=== PATIENT | female | born 1945 | race Caucasian/White ===

== ENCOUNTER 2021-07-11 11:28 | Emergency (ER) | payer MEDICARE, BC ==
[2021-07-11] MEDS ORDERED: Sodium Chloride 0.9% 10 ML Syringe FLUSH PRN (12:06)
--- NOTE | 2021-07-11 12:22 | EDM.PDOC ---
ED HPI GENERAL MEDICAL PROBLEM - General Chief Complaint: General Stated Complaint: [facility] Time Seen by Provider: 07/11/21 11:41 Source of Information: Reports: Patient History Limitations: Reports: No Limitations, Other (ED vital signs reveal temp of 97.8, pulse of 67, respiratory rate of 30, blood pressure 147/73, pulse ox 96% on room air) - History of Present Illness INITIAL COMMENTS - FREE TEXT/NARRATIVE: 76-year-old female presents the emergency department today with complaints of dehydration. Patient states she was exposed to a friend who tested positive for Covid 10 days ago. She states at the time that she was around her friend was 14 days ago. She states that about 10 days ago she developed a cough but that only lasted for day and has since resolved. She has not had any fever or chills, she has not had any nausea vomiting or diarrhea. She has not had any abdominal pain. She states that 3 days ago she developed body aches but that only lasted a day and has since resolved. She has not noted any change in her appetite. She has not had any shortness of breath or headache. She is however concerned that she may have Covid. She states her primary care provider was Dr. Santoro however he has since retired and she has not found replacement. Treatments CRITICAL CARE RN: Reports: Acetaminophen - Related Data Allergies Allergy/AdvReac Type Severity Reaction Status Date / Time No Known Allergies Allergy Verified 07/11/21 11:38 Home Meds: Home Meds Aspirin 81 mg PO DAILY 07/11/21 [History] Calcium Carbonate [Calcium] 1 tab PO DAILY 07/11/21 [History] Cefdinir [Omnicef] 300 mg PO BID #9 cap 07/11/21 [Rx] Enalapril [Vasotec] 10 mg PO DAILY 07/11/21 [History] Meloxicam [Mobic] 1 tab PO ASDIRECTED 07/11/21 [History] Triamterene/Hydrochlorothiazid [Triamterene-HCTZ 37.5-25 MG] 1 each PO 07/11/21 [History] dilTIAZem HCL [Cartia Xt] 240 mg PO 07/11/21 [History] Past Medical History HEENT History: Reports: Impaired Vision Cardiovascular History: Reports: Hypertension Respiratory History: Reports: None Gastrointestinal History: Reports: None Genitourinary History: Reports: None 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: Musculoskeletal History: Reports: Arthritis Neurological History: Reports: None Psychiatric History: Reports: None Endocrine/Metabolic History: Reports: None Hematologic History: Reports: None Immunologic History: Reports: None Oncologic (Cancer) History: Reports: None Dermatologic History: Reports: None - Infectious Disease History Infectious Disease History: Reports: Measles - Past Surgical History Head Surgeries/Procedures: Reports: None HEENT Surgical History: Reports: None Social & Family History - Family History Family Medical History: No Pertinent Family History - Tobacco Use Tobacco Use Status *Q: Never Tobacco User - Caffeine Use Caffeine Use: Reports: Soda - Recreational Drug Use Recreational Drug Use: No ED ROS GENERAL - Review of Systems Review Of Systems: Comprehensive ROS is negative, except as noted in HPI. ED EXAM, GENERAL - Physical Exam Exam: See Below Exam Limited By: No Limitations General Appearance: Alert, WD/WN, No Apparent Distress Ears: Normal External Exam, Hearing Grossly Normal Nose: Normal Inspection Throat/Mouth: Normal Inspection, Normal Lips, Normal Voice, No Airway Compromise Head: Atraumatic Neck: Normal Inspection, Supple Respiratory/Chest: No Respiratory Distress, Lungs Clear, Normal Breath Sounds, No Accessory Muscle Use, Chest Non-Tender Cardiovascular: Normal Peripheral Pulses, Regular Rate, Rhythm, No Edema, No Murmur Peripheral Pulses: 2+: Radial (L), Radial (R) GI/Abdominal: Normal Bowel Sounds, Soft, Non-Tender, No Distention (Female) Exam: Deferred Rectal (Female) Exam: Deferred Back Exam: Normal Inspection Extremities: Normal Inspection Neurological: Alert, Oriented, Normal Cognition Psychiatric: Normal Affect, Normal Mood Skin Exam: Warm, Dry, Intact, Normal Color, No Rash Lymphatic: No Adenopathy #1 Interpretation EKG Date: 07/11/21 Time: 12:28 Rhythm: NSR Rate (Beats/Min): 68 [place]: Normal P-Wave: Present QRS: Normal ST-T: Normal QT: Normal EKG Interpretation Comments: Per Dr. Tyler interpretation: Sinus or ectopic atrial rhythm at 68 bpm; inferior infarct, old Course - Vital Signs Last Recorded V/S: Last Vital Signs Temp 97.8 F 07/11/21 11:47 Pulse 63 07/11/21 14:30 Resp 16 07/11/21 14:30 BP 145/61 H 07/11/21 14:30 Pulse Ox 93 L 07/11/21 14:30 - Orders/Labs/Meds Orders: Active Orders 24 hr Category Date Time Status Vital Signs [RC] Q15M Care 07/11/21 14:00 Active CULTURE URINE [MREF] Stat Lab 07/11/21 13:15 Received EPINEPHrine [Adrenalin] Med 07/11/21 13:53 Active 0.3 mg IM ONETIME PRN Famotidine [Pepcid] Med 07/11/21 13:53 Active 20 mg IVPUSH ONETIME PRN Sodium Chloride 0.9% [Saline Flush] Med 07/11/21 12:06 Active 10 ml FLUSH ASDIRECTED PRN Sodium Chloride 0.9% [Saline Flush] Med 07/11/21 14:00 Active 30 ml FLUSH ASDIRECTED diphenhydrAMINE [Benadryl] Med 07/11/21 13:53 Active 50 mg IVPUSH ONETIME PRN methylPREDNISolone Sod Succ [Solu-MEDROL] Med 07/11/21 13:53 Active 125 mg IVPUSH ONETIME PRN Saline Lock Insert [OM.PC] Stat Oth 07/11/21 12:06 Ordered Medication Orders Diphenhydramine HCl (Diphenhydramine 50 Mg/Ml Sdv) 50 mg IVPUSH ONETIME PRN PRN Reason: hypersensitivity reaction Epinephrine HCl (Epinephrine 1 Mg/Ml Sdv) 0.3 mg IM ONETIME PRN PRN Reason: hypersensitivity reaction Famotidine (Famotidine 20 Mg/2 Ml Sdv) 20 mg IVPUSH ONETIME PRN PRN Reason: hypersensitivity reaction Methylprednisolone Sodium Succinate (Methylprednisolone Sodium Succinate 125 Mg/2 Ml Sdv) 125 mg IVPUSH ONETIME PRN PRN Reason: hypersensitivity reaction Sodium Chloride (Sodium Chloride 0.9% 10 Ml Syringe) 10 ml FLUSH ASDIRECTED PRN PRN Reason: Keep Vein Open Last Admin: 07/11/21 12:10 Dose: 10 ml Documented by: JAROD Sodium Chloride (Sodium Chloride 0.9% 10 Ml Syringe) 30 ml FLUSH ASDIRECTED AXEL Labs: Laboratory Tests 07/11/21 07/11/21 07/11/21 Range/Units 11:35 11:35 12:10 WBC 7.50 (3.98-10.04) K/mm3 RBC 5.10 (3.98-5.22) M/mm3 Hgb 15.3 (11.2-15.7) gm/dl Hct 46.1 H (34.1-44.9) % MCV 90.4 (79.4-94.8) fl MCH 30.0 (25.6-32.2) pg MCHC 33.2 (32.2-35.5) g/dl RDW Std Deviation 41.3 (36.4-46.3) fL Plt Count 349 (182-369) K/mm3 MPV 10.7 (9.4-12.3) fl Neut % (Auto) 75.1 H (34.0-71.1) % Lymph % (Auto) 18.5 L (19.3-51.7) % [place] % (Auto) 5.7 (4.7-12.5) % Eos % (Auto) 0.1 L (0.7-5.8) Baso % (Auto) 0.3 (0.1-1.2) % Neut # (Auto) 5.63 (1.56-6.13) K/mm3 Lymph # (Auto) 1.39 (1.18-3.74) K/mm3 [place] # (Auto) 0.43 H (0.24-0.36) K/mm3 Eos # (Auto) 0.01 L (0.04-0.36) K/mm3 Baso # (Auto) 0.02 (0.01-0.08) K/mm3 Sodium 134 L (136-145) mEq/L Potassium 4.7 (3.5-5.1) mEq/L Chloride 99 (98-107) mEq/L Carbon Dioxide 23 (21-32) mEq/L Anion Gap 16.7 H (5-15) BUN 44 H (7-18) mg/dL Creatinine 2.2 H (0.55-1.02) mg/dL Est Cr Clr Drug Dosing 18.49 mL/min Estimated GFR (MDRD) 22 (>60) mL/min BUN/Creatinine Ratio 20.0 H (14-18) Glucose 120 H (70-99) mg/dL Calcium 9.9 (8.5-10.1) mg/dL Magnesium 2.3 (1.8-2.4) mg/dL Total Bilirubin 0.3 (0.2-1.0) mg/dL AST 38 H (15-37) U/L ALT 37 (14-59) U/L Alkaline Phosphatase 128 H (46-116) U/L C-Reactive Protein 3.3 H* (<1.0) mg/dL Total Protein 8.2 (6.4-8.2) g/dl Albumin 3.7 (3.4-5.0) g/dl Globulin 4.5 gm/dL Albumin/Globulin Ratio 0.8 L (1-2) Urine Color (Yellow) Urine Appearance (Clear) Urine pH (5.0-8.0) Ur Specific [place] (1.005-1.030) Urine Protein (Negative) Urine Glucose (UA) (Negative) Urine Ketones (Negative) Urine Occult Blood (Negative) Urine Nitrite (Negative) Urine Bilirubin (Negative) Urine Urobilinogen (0.2-1.0) Ur Leukocyte Esterase (Negative) Urine RBC (0-5) /hpf Urine WBC (0-5) /hpf Ur Squamous Epith Cells (0-5) /hpf Urine Bacteria (FEW) /hpf Urine Mucus (FEW) /hpf SARS-CoV-2 RNA (JACKELINE) Positive H (NEGATIVE) 07/11/21 Range/Units 13:15 WBC (3.98-10.04) K/mm3 RBC (3.98-5.22) M/mm3 Hgb (11.2-15.7) gm/dl Hct (34.1-44.9) % MCV (79.4-94.8) fl MCH (25.6-32.2) pg MCHC (32.2-35.5) g/dl RDW Std Deviation (36.4-46.3) fL Plt Count (182-369) K/mm3 MPV (9.4-12.3) fl Neut % (Auto) (34.0-71.1) % Lymph % (Auto) (19.3-51.7) % [place] % (Auto) (4.7-12.5) % Eos % (Auto) (0.7-5.8) Baso % (Auto) (0.1-1.2) % Neut # (Auto) (1.56-6.13) K/mm3 Lymph # (Auto) (1.18-3.74) K/mm3 [place] # (Auto) (0.24-0.36) K/mm3 Eos # (Auto) (0.04-0.36) K/mm3 Baso # (Auto) (0.01-0.08) K/mm3 Sodium (136-145) mEq/L Potassium (3.5-5.1) mEq/L Chloride (98-107) mEq/L Carbon Dioxide (21-32) mEq/L Anion Gap (5-15) BUN (7-18) mg/dL Creatinine (0.55-1.02) mg/dL Est Cr Clr Drug Dosing mL/min Estimated GFR (MDRD) (>60) mL/min BUN/Creatinine Ratio (14-18) Glucose (70-99) mg/dL Calcium (8.5-10.1) mg/dL Magnesium (1.8-2.4) mg/dL Total Bilirubin (0.2-1.0) mg/dL AST (15-37) U/L ALT (14-59) U/L Alkaline Phosphatase (46-116) U/L C-Reactive Protein (<1.0) mg/dL Total Protein (6.4-8.2) g/dl Albumin (3.4-5.0) g/dl Globulin gm/dL Albumin/Globulin Ratio (1-2) Urine Color Yellow (Yellow) Urine Appearance Clear (Clear) Urine pH 6.5 (5.0-8.0) Ur Specific [place] 1.020 (1.005-1.030) Urine Protein Trace H (Negative) Urine Glucose (UA) Negative (Negative) Urine Ketones Trace H (Negative) Urine Occult Blood Negative (Negative) Urine Nitrite Negative (Negative) Urine Bilirubin Negative (Negative) Urine Urobilinogen 0.2 (0.2-1.0) Ur Leukocyte Esterase 2+ H (Negative) Urine RBC 0-5 (0-5) /hpf Urine WBC 10-20 H (0-5) /hpf Ur Squamous Epith Cells 0-5 (0-5) /hpf Urine Bacteria Moderate H (FEW) /hpf Urine Mucus Few (FEW) /hpf SARS-CoV-2 RNA (JACKELINE) (NEGATIVE) Meds: Medications Generic Name Dose Route Start Last Admin Trade Name Freq PRN Reason Stop Dose Admin Diphenhydramine HCl 50 mg 07/11/21 13:53 Diphenhydramine 50 Mg/Ml Sdv IVPUSH ONETIME PRN hypersensitivity reaction Epinephrine HCl 0.3 mg 07/11/21 13:53 Epinephrine 1 Mg/Ml Sdv IM ONETIME PRN hypersensitivity reaction Famotidine 20 mg 07/11/21 13:53 Famotidine 20 Mg/2 Ml Sdv IVPUSH ONETIME PRN hypersensitivity reaction Methylprednisolone Sodium Succinate 125 mg 07/11/21 13:53 Methylprednisolone Sodium Succinate 125 Mg/2 Ml Sdv IVPUSH ONETIME PRN hypersensitivity reaction Sodium Chloride 10 ml 07/11/21 12:06 07/11/21 12:10 Sodium Chloride 0.9% 10 Ml Syringe FLUSH 10 ml ASDIRECTED PRN Administration Keep Vein Open Sodium Chloride 30 ml 07/11/21 14:00 Sodium Chloride 0.9% 10 Ml Syringe FLUSH ASDIRECTED AXEL Discontinued Medications Generic Name Dose Route Start Last Admin Trade Name Freq PRN Reason Stop Dose Admin Cefdinir 300 mg 07/11/21 14:43 Cefdinir 300 Mg Cap PO 07/11/21 14:44 ONETIME ONE Sodium Chloride 500 mls @ 500 mls/hr 07/11/21 13:24 07/11/21 13:40 Normal Saline IV 07/11/21 14:23 500 mls/hr .BOLUS ONE Administration CASIRIVIMAB/IMDEVIMAB 10 ml/ 110 mls @ 220 mls/hr 07/11/21 13:53 07/11/21 14:09 Sodium Chloride IV 07/11/21 14:22 220 mls/hr ONETIME ONE Administration - Re-Assessments/Exams Free Text/Narrative Re-Assessment/Exam: 07/11/21 13:26 Radiologist impression portable view of the chest: 1. Patchy areas of increased density within the lungs most likely representing change from Covid pneumonia. 07/11/21 13:28 Hematology reveals a WBC of 7.50, hemoglobin 15.3, hematocrit 46.1, platelet count 349 Chemistry reveals a sodium of 134, potassium 4.7, anion gap 16.7, BUN 44, creatinine 2.2, glucose 120, magnesium 2.3, total bilirubin 0.3, AST 38, ALT 37, alk phos 128, C-reactive protein 3.3 Patient is Covid positive Patient's creatinine is slightly elevated. I do not have any previous history of visits on this patient to compare with. I am going to give her a 500 mL fluid bolus over 1 hour for gentle rehydration. I believe this patient would be appropriate to receive monoclonal antibodies, Regeneron. I will discuss this with the patient. 07/11/21 13:53 I spoke with the patient to provide information about Regeneron treatment for herself. I offered her the patient and caregiver [employer] Regeneron fax sheet to read and review. I stated the drug has been approved by an emergency use authorization process and has not been fully FDA approved or reviewed. The patient meets the EUA requirements. I discussed there are other potential treatment options that are currently not FDA approved to treat COVID-19. Offer ed opportunity to ask questions and all questions were answered. The patient voiced understanding and agreed to proceed with the treatment for herself. Departure - Departure Time of Disposition: 15:54 Disposition: Home, Self-Care 01 Condition: Good Clinical Impression: COVID-19 UTI (urinary tract infection) Qualifiers: Urinary tract infection type: site unspecified Hematuria presence: without hematuria Qualified Code(s): N39.0 - Urinary tract infection, site not specified - Discharge Information Prescriptions: Cefdinir [Omnicef] 300 mg PO BID #9 cap Instructions: COVID-19: Quarantine vs. Isolation - [facility] (11/03/2020), COVID-19: What to Do if You Are Sick - [facility] (11/17/2020) Referrals: PCP,None [Primary Care Provider] - Forms: ED Department Discharge Additional Instructions: You were seen in the emergency department today. Labs were completed which did show you had Covid. Chest x-ray did show that you may have a little pneumonia however current recommendations do not support putting you on antibiotics as this is likely viral and antibiotics will not help. While in the emergency department you received a monoclonal antibody treatment for Covid. Go home and rest. You need to quarantine for 10 days. Be sure to drink plenty of fluids such as Gatorade or Powerade's and water. May take Tylenol 650 mg as needed for fever or body aches every 4 hours. Your urine did show that you have a bladder infection and you were given oral antibiotics while in the emergency department. I have sent a prescription to your pharmacy for a medication called Omnicef. This medication needs to be taken twice daily until gone. You will need to take your second dose this evening. Should your condition worsen or change, do not hesitate returning to the emergency department. Sepsis Event Note (ED) - Evaluation Sepsis Screening Result: No Definite Risk - Focused Exam Vital Signs: Vital Signs Temp Pulse Resp BP Pulse Ox 07/11/21 14:30 63 16 145/61 H 93 L 07/11/21 14:15 61 16 146/70 H 95 07/11/21 14:00 62 16 136/61 96 07/11/21 11:47 97.8 F 67 30 H 147/73 H 96 07/11/21 11:45 97.8 F 67 30 H 147/73 H 96 - My Orders Last 24 Hours: My Active Orders 07/11/21 12:06 Sodium Chloride 0.9% [Saline Flush] 10 ml FLUSH ASDIRECTED PRN Saline Lock Insert [OM.PC] Stat 07/11/21 13:15 CULTURE URINE [MREF] Stat 07/11/21 13:53 EPINEPHrine [Adrenalin] 0.3 mg IM ONETIME PRN Famotidine [Pepcid] 20 mg IVPUSH ONETIME PRN diphenhydrAMINE [Benadryl] 50 mg IVPUSH ONETIME PRN methylPREDNISolone Sod Succ [Solu-MEDROL] 125 mg IVPUSH ONETIME PRN 07/11/21 14:00 Vital Signs [RC] Q15M Sodium Chloride 0.9% [Saline Flush] 30 ml FLUSH ASDIRECTED - Assessment/Plan Last 24 Hours: My Active Orders 07/11/21 12:06 Sodium Chloride 0.9% [Saline Flush] 10 ml FLUSH ASDIRECTED PRN Saline Lock Insert [OM.PC] Stat 07/11/21 13:15 CULTURE URINE [MREF] Stat 07/11/21 13:53 EPINEPHrine [Adrenalin] 0.3 mg IM ONETIME PRN Famotidine [Pepcid] 20 mg IVPUSH ONETIME PRN diphenhydrAMINE [Benadryl] 50 mg IVPUSH ONETIME PRN methylPREDNISolone Sod Succ [Solu-MEDROL] 125 mg IVPUSH ONETIME PRN 07/11/21 14:00 Vital Signs [RC] Q15M Sodium Chloride 0.9% [Saline Flush] 30 ml FLUSH ASDIRECTED
--- NOTE | 2021-07-11 12:42 | CR ---
Chest: Frontal view of the chest was obtained. Comparison: No prior chest imaging is available. Patchy increased density is noted within the right upper and right lower lung as well as within the left upper lung. Heart size appears slightly prominent. Tortuous thoracic aorta is noted. No acute osseous abnormality is appreciated. Impression: 1. Patchy areas of increased density within the lungs most likely representing change from COVID pneumonia. Diagnostic code #3
[2021-07-11] MEDS ORDERED: Sodium Chloride 0.9% 500 ML IV ONE (13:24)
[2021-07-11] MEDS ORDERED: EPINEPHrine 1 MG/ML SDV IM PRN (13:53)
[2021-07-11] MEDS ORDERED: diphenhydrAMINE 50 MG/ML SDV IVPUSH PRN (13:53)
[2021-07-11] MEDS ORDERED: Famotidine 20 MG/2 ML SDV IVPUSH PRN (13:53)
[2021-07-11] MEDS ORDERED: methylPREDNISolone Sodium Succinate 125 MG/2 ML SDV IVPUSH PRN (13:53)
[2021-07-11] MEDS ORDERED: Sodium Chloride 0.9% 10 ML Syringe FLUSH SCH (14:00)
[2021-07-11] MEDS ORDERED: Cefdinir 300 MG Cap PO ONE (14:43)
== END 2021-07-11 15:45 | disposition home or self-care (01) ==
LOC: JD.ED 11:28
DX: U07.1 COVID-19 (principal); N39.0 Urinary tract infection, site not specified; I10 Essential (primary) hypertension; M19.90 Unspecified osteoarthritis, unspecified site; Z79.82 Long term (current) use of aspirin; Z79.899 Other long term (current) drug therapy
CPT/HCPCS: 36415; 71045; 71045-26; 80053; 81001; 83735; 85025; 86140; 87086; 93005; 93010; 99284; 99285-25; A9270-GY; J7030; M0243; Q0243; U0002

== ENCOUNTER 2023-07-11 07:15 | Day surgery (SDC) | payer MEDICARE, BC ==
[2023-07-11] MEDS: Polymyxin B/Trimethoprim 10 ML Bottle EYELF SCH ×4 (07:19→08:51)
[2023-07-11] MEDS ORDERED: Midazolam 1 MG/ML 2 ML SDV ONE (07:25)
[2023-07-11] MEDS: Brimonidine 0.2% Ophth Soln 5 ML Bottle EYELF SCH ×4 (07:25→08:51)
[2023-07-11] MEDS: Phenylephrine 2.5% Ophth Soln 2 ML Bot EYELF SCH ×6 (07:30→08:33)
[2023-07-11] MEDS: Tropicamide 1% Ophth Soln 15 ML Bottle EYELF SCH ×4 (07:35→08:12)
[2023-07-11] MEDS: Tetracaine HCl/PF 0.5% 4 ML Bottle EYEBOTH SCH ×5 (07:41→08:38)
[2023-07-11] MEDS: Pilocarpine 4% Ophth Soln 15 ML Bot EYELF SCH ×2 (07:42→08:51)
[2023-07-11] MEDS: Lidocaine 1% PF 2 ML SDV INJECT SCH ×2 (07:42→08:39)
[2023-07-11] MEDS: Cefuroxime 10 MG/ML SYRINGE EYELF SCH ×2 (07:42→08:50)
== END 2023-07-11 09:04 | disposition home or self-care (01) ==
LOC: JD.SDS 07:15
PROVIDERS: ATTEND Ophthalmology
DX: H25.812 Combined forms of age-related cataract, left eye (principal); I10 Essential (primary) hypertension; M19.90 Unspecified osteoarthritis, unspecified site; Z98.41 Cataract extraction status, right eye; Z96.1 Presence of intraocular lens; Z79.82 Long term (current) use of aspirin; Z79.899 Other long term (current) drug therapy
CPT/HCPCS: 66984; A9270; C1780; J0697; J2250; 00142; 99100; J3490

== ENCOUNTER 2024-05-25 07:55 | Day surgery (SDC) | payer MEDICARE, BC ==
[~2024-05-25 07:55] MED LIST: Sodium Chloride 0.9% 10 ML Syringe FLUSH PRN; Sodium Chloride 0.9% 10 ML Syringe FLUSH SCH
[2024-05-25] MEDS: Lactated Ringers 1,000 ML IV SCH (08:15)
[2024-05-25] MEDS ORDERED: ceFAZolin 2 GM Vial ONE ×2 (09:11→10:43)
[2024-05-25] MEDS ORDERED: Propofol 200 MG/20 ML SDV ONE (09:11)
[2024-05-25] MEDS ORDERED: fentaNYL 100 MCG/2 ML SDV ONE (09:11)
[2024-05-25] MEDS ORDERED: Midazolam 1 MG/ML 2 ML SDV ONE (09:11)
[2024-05-25] MEDS ORDERED: Ondansetron 4 MG/2 ML SDV ONE (10:43)
[2024-05-25] MEDS ORDERED: HYDROmorphone 0.5 MG/0.5 ML Syringe ONE (10:43)
[2024-05-25] MEDS ORDERED: Ketorolac 15 MG/ML SDV ONE (10:43)
[2024-05-25] MEDS ORDERED: Rocuronium 50 MG/5 ML Vial ONE ×2 (11:30→11:50)
[2024-05-25] MEDS ORDERED: Sugammadex Sodium 200 MG/2 ML VIAL IV ONE (11:30)
[2024-05-25] MEDS ORDERED: Lactated Ringers 1,000 ML IV ONE (11:30)
[2024-05-25] MEDS: Morphine 8 MG, EPINEPHrine 0.3 MG, Cefuroxime 750 MG, Ketorolac 30 MG, Sodium Chloride ... PRN (11:35)
[2024-05-25] MEDS: Tranexamic Acid 1,000 MG/10 ML Vial ONE (11:41)
[2024-05-25] MEDS: Vancomycin 1 GM SDV ONE (11:41)
[2024-05-25] MEDS: Bupivacaine 0.25% 10 ML SDV ONE (12:02)
[2024-05-25] MEDS ORDERED: Ropivacaine 0.5% 5 MG/ML 30 ML SDV ONE (12:07)
[2024-05-25] MEDS: HYDROmorphone 0.5 MG/0.5 ML Syringe IVPUSH SCH (12:10)
[2024-05-25] MEDS: HYDROmorphone 0.5 MG/0.5 ML Syringe ONE (12:23)
[2024-05-25] MEDS ORDERED: Acetaminophen/HYDROcodone 325-5 MG Tab PO PRN (12:32)
[2024-05-25] MEDS: Triamcinolone Acetonide 40 MG/ML 1 ML SDV ONE (13:51)
== END 2024-05-25 16:15 | disposition home or self-care (01) ==
LOC: JD.SDS 07:55
PROVIDERS: ATTEND Orthopaedic Surgery
DX: M17.0 Bilateral primary osteoarthritis of knee (principal); I12.9 Hypertensive chronic kidney disease with stage 1 through stage 4 chronic kidney disease, or unspecified chronic kidney disease; N18.32 Chronic kidney disease, stage 3b; I48.0 Paroxysmal atrial fibrillation; E78.2 Mixed hyperlipidemia; Z79.01 Long term (current) use of anticoagulants; Z79.899 Other long term (current) drug therapy
CPT/HCPCS: 0055T; 20610; 27447; 64447; 73560; 97110; 97161; C1713; C1776; J0171; J0665; J0690; J0697; J1170; J1885; J2250; J2270; J2405; J2704; J2795; J3010; J3301; J3370; J3490; J7120

== ENCOUNTER 2024-06-02 11:58 | Emergency (ER) | payer MEDICARE, BC ==
[2024-06-02] MEDS: Sodium Chloride 0.9% 10 ML Syringe FLUSH PRN (13:50)
[2024-06-02] MEDS: Sodium Chloride 0.9% 1,000 ML IV ONE (13:50)
[2024-06-02 14:07] LABS: BASOPHILS PERCENT AUTO 0.2 % (0.0-1.0); EOSINOPHILS ABSOLUTE AUTO 0.1 K/mm3 (0.0-0.4); EOSINOPHILS PERCENT AUTO 0.5 % (0.0-6.0); HEMATOCRIT 39.6 % (37.0-47.0); IMMATURE GRAN ABSOLUTE AUTO 0.16 K/mm3 (0.00-0.05); IMMATURE GRAN PERCENT AUTO 1.4 % (0.0-0.4); LYMPHOCYTES ABSOLUTE AUTO 1.2 K/mm3 (1.0-4.8); LYMPHOCYTES PERCENT AUTO 9.9 % (24.0-44.0); MEAN CORPUSCULAR HEMOGLOBIN 30.7 pg (28.0-32.0); MEAN CORPUSCULAR HGB CONC 32.8 g/dl (32.0-36.0); MEAN CORPUSCULAR VOLUME 93.4 fl (83.0-99.0); MEAN PLATELET VOLUME 9.9 fl (9.4-12.3); MONOCYTES ABSOLUTE AUTO 0.7 K/mm3 (0.0-0.8); MONOCYTES PERCENT AUTO 6.2 % (0.0-8.0); NEUTROPHILS ABSOLUTE AUTO 9.7 K/mm3 (1.8-7.7); NEUTROPHILS PERCENT AUTO 81.8 % (41.0-71.0); PLATELET COUNT,PLT 458 K/mm3 (150-400); RED BLOOD CELL COUNT 4.24 M/mm3 (4.10-5.30); WHITE BLOOD CELL COUNT,WBC 11.79 K/mm3 (3.9-11.3)
[2024-06-02 14:33] LABS: ALBUMIN 3.6 g/dl (3.4-5.0); ANION GAP 15.3 (5-15); BILIRUBIN TOTAL 0.7 mg/dL (0.2-1.0); CALCIUM 10.5 mg/dL (8.5-10.1); CREATININE 1.8 mg/dL (0.55-1.02); EST CRCL DRUG DOSING (CG) 20.62 mL/min; MAGNESIUM 2.1 mg/dL (1.8-2.4); POTASSIUM,K 4.3 mEq/L (3.5-5.1); PROTEIN TOTAL,TP 7.4 g/dl (6.4-8.2)
== END 2024-06-02 17:10 | disposition home or self-care (01) ==
LOC: JD.ED 11:58
DX: E86.0 Dehydration (principal); R19.7 Diarrhea, unspecified; E83.52 Hypercalcemia; R94.4 Abnormal results of kidney function studies; I10 Essential (primary) hypertension; Z86.16 Personal history of COVID-19
CPT/HCPCS: 36415; 80053; 83735; 85025; 87493; 93005; 96360; 99284; J3490; J7030; 93010; 99283

== ENCOUNTER 2024-06-09 12:09 | Emergency (ER) | payer MEDICARE, BC ==
[2024-06-09] MEDS: Dextrose 5%-Lactated Ringers 1,000 ML IV SCH (13:52)
[2024-06-09 13:57] LABS: BASOPHILS PERCENT AUTO 0.3 % (0.0-1.0); EOSINOPHILS ABSOLUTE AUTO 0.1 K/mm3 (0.0-0.4); EOSINOPHILS PERCENT AUTO 0.6 % (0.0-6.0); HEMATOCRIT 39.7 % (37.0-47.0); HEMOGLOBIN 13.3 gm/dl (12.0-16.0); IMMATURE GRAN ABSOLUTE AUTO 0.05 K/mm3 (0.00-0.05); IMMATURE GRAN PERCENT AUTO 0.5 % (0.0-0.4); LYMPHOCYTES ABSOLUTE AUTO 1.1 K/mm3 (1.0-4.8); LYMPHOCYTES PERCENT AUTO 11.6 % (24.0-44.0); MEAN CORPUSCULAR HEMOGLOBIN 30.8 pg (28.0-32.0); MEAN CORPUSCULAR HGB CONC 33.5 g/dl (32.0-36.0); MEAN CORPUSCULAR VOLUME 91.9 fl (83.0-99.0); MEAN PLATELET VOLUME 9.9 fl (9.4-12.3); MONOCYTES ABSOLUTE AUTO 0.6 K/mm3 (0.0-0.8); NEUTROPHILS ABSOLUTE AUTO 7.6 K/mm3 (1.8-7.7); PLATELET COUNT,PLT 460 K/mm3 (150-400); RED BLOOD CELL COUNT 4.32 M/mm3 (4.10-5.30); WHITE BLOOD CELL COUNT,WBC 9.41 K/mm3 (3.9-11.3)
[2024-06-09 15:12] LABS: APPEARANCE,URINE CLEAR (Clear); BILIRUBIN,URINE NEGATIVE (Negative); COLOR,URINE YELLOW (Yellow); GLUCOSE,URINE NEGATIVE (Negative); KETONES,URINE NEGATIVE (Negative); LEUKOCYTE ESTERASE,URINE 1+ (Negative); NITRITE,URINE NEGATIVE (Negative); OCCULT BLOOD,URINE TRACE-LYSED (Negative); PH,URINE 6.5 (5.0-8.0); PROTEIN,URINE NEGATIVE (Negative); UROBILINOGEN,URINE 0.2 (0.2-1.0)
[2024-06-09 15:18] LABS: BACTERIA,URINE MODERATE /hpf (FEW); MUCUS,URINE FEW /hpf (FEW)
[2024-06-09 16:03] LABS: HEMOGLOBIN A1C 5.9 %
[2024-06-09 16:04] LABS: ALBUMIN 3.6 g/dl (3.4-5.0); ANION GAP 15.3 (5-15); BILIRUBIN TOTAL 0.5 mg/dL (0.2-1.0); BUN/CREATININE RATIO 33.3 (14-18); C-REACTIVE PROTEIN 0.14 mg/dL (<0.30); CALCIUM 10.6 mg/dL (8.5-10.1); CREATININE 1.5 mg/dL (0.55-1.02); EST CRCL DRUG DOSING (CG) 24.74 mL/min; POTASSIUM,K 4.3 mEq/L (3.5-5.1); PROTEIN TOTAL,TP 7.3 g/dl (6.4-8.2)
== END 2024-06-09 18:50 | disposition home or self-care (01) ==
LOC: JD.ED 12:09
DX: N39.0 Urinary tract infection, site not specified (principal); I10 Essential (primary) hypertension; E78.00 Pure hypercholesterolemia, unspecified; Z86.16 Personal history of COVID-19; Z79.899 Other long term (current) drug therapy
CPT/HCPCS: 36415; 80053; 81001; 83036; 83735; 83880; 84443; 84484; 85025; 86140; 87086; 93005; 96360; 96361; 99284; J7121